=== PATIENT | male | born 1955 | race Caucasian/White ===

== ENCOUNTER 2017-02-26 12:08 | Emergency (ER) | payer BC ==
[~2017-02-26] VITALS: Ht 175.2 cm; Wt 68.0 kg
[2017-02-26] MEDS ORDERED: LISINOPRIL5 MG PO (12:13)
[2017-02-26 12:39] LABS: BASO # 0.1 10*3/uL (0.0-0.1); BASO % 1.1 % (0.0-1.0); EOS # 0.3 10*3/uL (0.0-0.4); EOS % 4.9 % (1.0-4.0); HEMATOCRIT 45.2 % (42.0-52.0); HEMOGLOBIN 15.7 g/dl (14.0-18.0); LYMPH % 31.2 % (27.0-41.0); MEAN CELL VOLUME 97.6 fl (80.0-94.0); MEAN CORPUSCULAR HGB 33.9 pg (27.0-31.0); MEAN CORPUSCULAR HGB CONC 34.7 g/dl (33.0-37.0); MEAN PLATELET VOLUME 10.2 fl (9.6-12.3); MONO # 0.7 10*3/uL (0.1-1.0); MONO % 11.1 % (3.0-9.0); NEUT # 3.3 10*3/uL (2.3-7.9); NEUT % 51.4 % (47.0-73.0); PLATELET COUNT AUTOMATED 200 10*3/uL (130-400); RED BLOOD COUNT 4.63 10*6/uL (4.50-5.90); RED CELL DISTRI WIDTH 12.6 % (0-14.5); WHITE BLOOD COUNT 6.5 10*3/uL (4.8-10.8)
[2017-02-26 12:58] LABS: ALBUMIN 3.6 gm/dl (3.1-4.5); ALKALINE PHOSPHATASE 120 U/L (45-117); BUN 5 mg/dl (7-24); CARBON DIOXIDE 33 mmol/L (21-32); CHLORIDE 94 mmol/L (98-107); EST GLOM FILT AFRICAN AMERICAN > 60 ml/min; GLUCOSE 102 mg/dL (65-99); MAGNESIUM 2.1 mg/dL (1.5-2.1); POTASSIUM 4.4 mmol/L (3.5-5.1); SGOT/AST 20 IU/L (3-35); SODIUM 129 mmol/L (136-145); TOTAL PROTEIN 6.6 gm/dL (6.4-8.2)
[2017-02-26 12:59] LABS: SGPT/ALT 26 U/L (12-78); TROPONIN I < 0.015 ng/ml (<0.045)
== END 2017-02-26 13:53 | disposition short-term general hospital (02) ==
LOC: ED 12:08
PROVIDERS: Student in an Organized Health Care Education/Training Program
DX: R20.0 Anesthesia of skin (principal); F17.200 Nicotine dependence, unspecified, uncomplicated; Z98.890 Other specified postprocedural states; Z88.8 Allergy status to other drugs, medicaments and biological substances

== ENCOUNTER → 2017-03-04 | Outpatient (CLI) | payer BC ==
[~2017-03-04] MED LIST: LISINOPRIL5 MG PO
== END | disposition home or self-care (01) ==
LOC: CARD 11:00
DX: I63.9 Cerebral infarction, unspecified (principal)

== ENCOUNTER → 2017-10-19 | Outpatient (CLI) | payer BC | END | disposition home or self-care (01) | LOC: LAB 10:51 | DX: D64.9 Anemia, unspecified (principal) ==

== ENCOUNTER → 2018-02-11 | Outpatient (CLI) | payer BC ==
[2018-02-11 10:08] LABS: BASO % 0.8 % (0.0-1.0); EOS # 0.3 10*3/uL (0.0-0.4); EOS % 7.3 % (1.0-4.0); HEMOGLOBIN 11.6 g/dl (14.0-18.0); LYMPH # 1.4 10*3/uL (1.3-4.4); LYMPH % 39.2 % (27.0-41.0); MEAN CELL VOLUME 80.6 fl (80.0-94.0); MEAN CORPUSCULAR HGB 25.3 pg (27.0-31.0); MEAN CORPUSCULAR HGB CONC 31.4 g/dl (33.0-37.0); MEAN PLATELET VOLUME 10.1 fl (9.6-12.3); MONO # 0.4 10*3/uL (0.1-1.0); MONO % 12.4 % (3.0-9.0); NEUT # 1.4 10*3/uL (2.3-7.9); PLATELET COUNT AUTOMATED 245 10*3/uL (130-400); RED BLOOD COUNT 4.59 10*6/uL (4.50-5.90); RED CELL DISTRI WIDTH 18.4 % (0-14.5); WHITE BLOOD COUNT 3.6 10*3/uL (4.8-10.8)
[2018-02-11 10:26] LABS: ALKALINE PHOSPHATASE 76 U/L (45-117); BUN 6 mg/dl (7-24); CHLORIDE 98 mmol/L (98-107); CHOLESTEROL 178 mg/dL (<200); CREATININE 0.67 mg/dL (0.70-1.30); HDL CHOLESTEROL 106 mg/dl (40-60); LDL CHOLESTEROL 57 mg/dL (9-159); POTASSIUM 4.8 mmol/L (3.5-5.1); SGOT/AST 24 IU/L (3-35); SGPT/ALT 24 U/L (12-78); SODIUM 134 mmol/L (136-145); TOTAL PROTEIN 7.1 gm/dL (6.4-8.2); TRIGLYCERIDES 76 mg/dl (<150); URIC ACID 4.4 mg/dL (3.5-7.2); VLDL CHOLESTEROL 15 mg/dL (6-40)
== END | disposition home or self-care (01) ==
LOC: LAB 09:33
PROVIDERS: Internal Medicine
DX: Z12.5 Encounter for screening for malignant neoplasm of prostate (principal); M79.641 Pain in right hand; I10 Essential (primary) hypertension; E78.2 Mixed hyperlipidemia; R35.1 Nocturia

== ENCOUNTER → 2018-03-02 | Outpatient (CLI) | payer BC | END | disposition home or self-care (01) | LOC: CP 10:13 | DX: J43.2 Centrilobular emphysema (principal) ==

== ENCOUNTER → 2018-07-28 | Outpatient (CLI) | payer BC | END | disposition home or self-care (01) | LOC: RAD 11:34 | DX: J44.9 Chronic obstructive pulmonary disease, unspecified (principal); D50.8 Other iron deficiency anemias ==

== ENCOUNTER → 2020-05-07 | Outpatient (CLI) | payer OTHER ==
[2020-05-07 10:22] LABS: HEMATOCRIT 48.5 % (42.0-52.0); MEAN CELL VOLUME 95.3 fl (80.0-94.0); MEAN CORPUSCULAR HGB CONC 33.6 g/dl (33.0-37.0); MEAN PLATELET VOLUME 10.8 fl (9.6-12.3); RED BLOOD COUNT 5.09 10*6/uL (4.50-5.90); RED CELL DISTRI WIDTH 12.8 % (0-14.5); WHITE BLOOD COUNT 4.7 10*3/uL (4.8-10.8)
[2020-05-07 10:59] LABS: ALBUMIN 3.9 gm/dl (3.1-4.5); ALKALINE PHOSPHATASE 127 U/L (45-117); BUN 5 mg/dl (7-24); CHLORIDE 102 mmol/L (98-107); CHOLESTEROL 162 mg/dL (<200); CREATININE 0.83 mg/dL (0.70-1.30); HDL CHOLESTEROL 86 mg/dl (40-60); LDL CHOLESTEROL 60 mg/dL (9-159); POTASSIUM 4.7 mmol/L (3.5-5.1); SGOT/AST 18 IU/L (3-35); SGPT/ALT 29 U/L (12-78); SODIUM 134 mmol/L (136-145); TOTAL PROTEIN 7.5 gm/dL (6.4-8.2); TRIGLYCERIDES 80 mg/dl (<150); VLDL CHOLESTEROL 16 mg/dL (6-40)
== END | disposition home or self-care (01) ==
LOC: LAB 09:47
PROVIDERS: Physician Assistant
DX: Z12.5 Encounter for screening for malignant neoplasm of prostate (principal); I63.511 Cerebral infarction due to unspecified occlusion or stenosis of right middle cerebral artery; J43.2 Centrilobular emphysema; E78.2 Mixed hyperlipidemia; I10 Essential (primary) hypertension

== ENCOUNTER → 2021-11-15 | Outpatient (CLI) | payer OTHER | END | disposition home or self-care (01) | LOC: RAD 11:48 | PROVIDERS: ATTEND Physician Assistant | DX: M47.816 Spondylosis without myelopathy or radiculopathy, lumbar region (principal); M48.061 Spinal stenosis, lumbar region without neurogenic claudication; R29.898 Other symptoms and signs involving the musculoskeletal system; I10 Essential (primary) hypertension; I63.511 Cerebral infarction due to unspecified occlusion or stenosis of right middle cerebral artery; Z98.890 Other specified postprocedural states ==

== ENCOUNTER 2022-06-04 11:32 | Emergency (ER) | payer OTHER ==
[2022-06-04 12:10] LABS: BASO % 0.8 % (0.0-1.0); EOS # 0.1 10*3/uL (0.0-0.4); EOS % 2.7 % (1.0-4.0); HEMATOCRIT 32.7 % (42.0-52.0); LYMPH # 1.1 10*3/uL (1.3-4.4); LYMPH % 21.9 % (27.0-41.0); MEAN CELL VOLUME 89.8 fl (80.0-94.0); MEAN CORPUSCULAR HGB 28.3 pg (27.0-31.0); MEAN CORPUSCULAR HGB CONC 31.5 g/dl (33.0-37.0); MEAN PLATELET VOLUME 11.1 fl (9.6-12.3); MONO # 0.6 10*3/uL (0.1-1.0); MONO % 11.5 % (3.0-9.0); NEUT # 3.1 10*3/uL (2.3-7.9); NEUT % 62.9 % (47.0-73.0); PLATELET COUNT AUTOMATED 246 10*3/uL (130-400); RED BLOOD COUNT 3.64 10*6/uL (4.50-5.90); RED CELL DISTRI WIDTH 13.2 % (0-14.5); WHITE BLOOD COUNT 4.9 10*3/uL (4.8-10.8)
[2022-06-04 12:20] LABS: ACT PARTIAL THROMBO TIME 26.5 SECONDS (20.0-32.1); INTERNATIONAL NORM RATIO 1.1 (2.0-3.5)
[2022-06-04 12:30] LABS: ALKALINE PHOSPHATASE 111 U/L (45-117); BUN 8 mg/dl (7-24); CHLORIDE 107 mmol/L (98-107); CREATININE 1.02 mg/dL (0.70-1.30); LIPASE 90 U/L (73-393); POTASSIUM 4.4 mmol/L (3.5-5.1); SGOT/AST 19 IU/L (3-35); SGPT/ALT 35 U/L (12-78); SODIUM 139 mmol/L (136-145); TOTAL PROTEIN 6.8 gm/dL (6.4-8.2)
[2022-06-04] MEDS ORDERED: COZAAR50 M1 PO (20:11)
[2022-06-04] MEDS ORDERED: BRILINTA90 M1 PO (20:12)
[2022-06-04] MEDS ORDERED: CRESTOR40 M1 PO (20:13)
[2022-06-04] MEDS ORDERED: PANTOPRAZOLE SO40 MG PO (20:13)
[2022-06-04] MEDS ORDERED: CITALOPRAM10 MG PO (20:16)
== END 2022-06-04 23:36 | disposition short-term general hospital (02) ==
LOC: ED 11:32
PROVIDERS: Emergency Medicine
DX: I63.9 Cerebral infarction, unspecified (principal); Z88.8 Allergy status to other drugs, medicaments and biological substances; Z79.899 Other long term (current) drug therapy

== ENCOUNTER → 2022-07-10 | Outpatient (CLI) | payer OTHER ==
[~2022-07-10] MED LIST changes: +BRILINTA90 M1 PO; +CITALOPRAM10 MG PO; +COZAAR50 M1 PO; +CRESTOR40 M1 PO; +PANTOPRAZOLE SO40 MG PO
== END | disposition home or self-care (01) ==
LOC: RAD 07-08 09:00
PROVIDERS: ATTEND Specialist
DX: R13.10 Dysphagia, unspecified (principal)

== ENCOUNTER → 2022-08-13 | Outpatient (CLI) | payer OTHER | END | disposition home or self-care (01) | LOC: RAD/SH 10:00 | PROVIDERS: ATTEND Specialist | DX: R13.10 Dysphagia, unspecified (principal); Z86.73 Personal history of transient ischemic attack (TIA), and cerebral infarction without residual deficits ==

== ENCOUNTER → 2022-12-10 | Outpatient (CLI) | payer MEDICARE | END | disposition home or self-care (01) | LOC: RAD 12-09 10:00 | PROVIDERS: ATTEND Specialist | DX: K22.9 Disease of esophagus, unspecified (principal); K44.9 Diaphragmatic hernia without obstruction or gangrene; I63.349 Cerebral infarction due to thrombosis of unspecified cerebellar artery; I70.0 Atherosclerosis of aorta ==

== ENCOUNTER → 2023-04-23 | Outpatient (CLI) | payer MEDICARE ==
[~2023-04-23] MED LIST changes: +CARAFATE1 G1 PO; +CITALOPRAM20 MG PO; +FEROSUL325 MG PO; +TRELEGY ELLIPT1 EACH INH
[2023-04-23 09:06] VITALS: BP 126/68
[2023-04-23 10:28] VITALS: BP 122/60
[2023-04-23 10:55] VITALS: BP 125/64
[2023-04-23 11:30] VITALS: BP 133/63
[2023-04-23 12:30] VITALS: BP 124/57
[2023-04-23 13:05] VITALS: BP 122/59
[2023-04-23 13:10] LABS: BASO % 0.5 % (0.0-1.0); EOS % 0.9 % (1.0-4.0); HEMATOCRIT 25.7 % (42.0-52.0); LYMPH # 1.2 10*3/uL (1.3-4.4); MEAN CORPUSCULAR HGB 31.3 pg (27.0-31.0); MEAN CORPUSCULAR HGB CONC 31.9 g/dl (33.0-37.0); MEAN PLATELET VOLUME 11.3 fl (9.6-12.3); MONO # 0.4 10*3/uL (0.1-1.0); MONO % 9.4 % (3.0-9.0); NEUT # 2.6 10*3/uL (2.3-7.9); PLATELET COUNT AUTOMATED 158 10*3/uL (130-400); RED BLOOD COUNT 2.62 10*6/uL (4.50-5.90); RED CELL DISTRI WIDTH 14.9 % (0-14.5); WHITE BLOOD COUNT 4.3 10*3/uL (4.8-10.8)
[2023-04-23 13:18] LABS: MEAN CELL VOLUME 98.1 fl (80.0-94.0)
== END | disposition home or self-care (01) ==
LOC: TRNFUSION 08:30
PROVIDERS: ATTEND Physician Assistant
DX: D64.9 Anemia, unspecified (principal); I10 Essential (primary) hypertension; Z86.73 Personal history of transient ischemic attack (TIA), and cerebral infarction without residual deficits

== ENCOUNTER → 2023-07-02 | Outpatient (CLI) | payer MEDICARE ==
[2023-07-02] VITALS (9 sets, daily range): BP systolic 95–129; BP diastolic 58–84
== END | disposition home or self-care (01) ==
LOC: TRNFUSION 01:29
PROVIDERS: ATTEND Internal Medicine
DX: D50.9 Iron deficiency anemia, unspecified (principal); I10 Essential (primary) hypertension; Z87.891 Personal history of nicotine dependence

== ENCOUNTER → 2024-01-22 | Outpatient (CLI) | payer MEDICARE | END | disposition home or self-care (01) | LOC: LAB 11:06 | PROVIDERS: ATTEND Psychiatry & Neurology Neurology | DX: F32.A Depression, unspecified (principal) ==